=== PATIENT | male | born 1975 | race Caucasian/White ===

== ENCOUNTER → 2017-09-18 08:40 | Outpatient (CLI) | payer BC, SELFPAY ==
--- NOTE | 2017-09-18 08:47 | US_ITS ---
HISTORY: ITS.REASON: RUQ ABD PAIN, ELEVATED BILIRUBIN ORDERING PHYSICIAN: Celina Hurd PATIENT AGE: 42 years COMPARISON: None FINDINGS: PANCREAS: Unremarkable. No obvious mass or abnormal fluid collection. No ductal dilatation LIVER: No focal liver lesions demonstrated. Homogeneous echogenicity. No intrahepatic biliary ductal dilatation evident RIGHT KIDNEY: Unremarkable. Normal size and echogenicity. No hydronephrosis GALLBLADDER: No gallstones, gallbladder wall thickening, pericholecystic fluid, or biliary dilatation. There is a small amount sludge versus concentrated bile in the gallbladder. No stones. IMPRESSION: No gallstones evident. Minimal amount sludge versus concentrated bile within the gallbladder questionable clinical significance
== END ==
PROVIDERS: Family Provider Family Medicine; PCP Family Medicine; Visit Provider Nurse Practitioner Family
DX: R17 Unspecified jaundice (principal); R10.11 Right upper quadrant pain
CPT/HCPCS: 76705

== ENCOUNTER → 2018-04-03 10:11 | Outpatient (CLI) | payer BC, SELFPAY ==
--- NOTE | 2018-04-03 10:14 | MR_ITS ---
MR head/brain wo con HISTORY: Subtle onset severe left-sided headache ITS.REASON: SUDDEN ONSET OF HEADACHE, FAMILY HX OF CEREBRAL ANEURYSM, BL ORDERING PHYSICIAN: Celina Hurd PATIENT AGE: 42 years Comparison: None TECHNIQUE: Standard multiplanar multiecho sequences are performed without contrast. FINDINGS: No midline shift, mass effect, intracranial hemorrhage or hydrocephalus. No evidence of acute infarction. The cerebellopontine angles, cerebellum, brainstem, pituitary, and optic chiasm have an unremarkable appearance. No cerebellar ectopia. There is normal angel-white matter differentiation. There are a few periventricular T2 white matter hyperintensities nonspecific and may be due to small gliotic foci. No large aneurysms are evident. Small aneurysms may not be seen with this technique and may be better evaluated for with MRA if clinically warranted. There is mild mucosal thickening of the ethmoid sinuses on the left. No mastoid effusion. There is a small Thornwaldt cyst in the nasopharynx measuring 10 by 8 mm. A right frontal subcutaneous cyst is present 17 mm. IMPRESSION: 1. No acute intracranial findings. 2. There are only a few T2 white matter hyperintensities which are nonspecific and could be due to small ischemic gliotic foci from microvascular changes or sequela from migraine headache 3. Left nasopharyngeal Thornwaldt cyst and right frontal subcutaneous cyst 4. Mild left ethmoid sinus disease IMPRESSION:
== END ==
PROVIDERS: Family Provider Family Medicine; PCP Family Medicine; Visit Provider Nurse Practitioner Family
DX: R51 Headache (principal); Z82.49 Family history of ischemic heart disease and other diseases of the circulatory system; H53.8 Other visual disturbances
CPT/HCPCS: 70551

== ENCOUNTER → 2018-04-13 10:04 | Outpatient (CLI) | payer BC, SELFPAY ==
--- NOTE | 2018-04-13 10:11 | NM_ITS ---
Hepatobiliary HEPATOBILIARY SCAN WITH FATTY MEAL/ENSURE ORDERING PHYSICIAN : Celina Hurd PATIENT AGE: 42 years GENDER: Male HISTORY: Right upper quadrant pain and nausea Following 8.02 millicuries Tc Choletec, images of the RUQ were obtained. There is prompt uptake of radionuclide by the liver which is grossly unremarkable. Small bowel is visualized. This initial portion of the study is normal. The gallbladder was allowed to fill out to 60 minutes. Fatty meal/1 can of ensure over administered with imaging performed over 60 minutes minutes. Thereafter. The obtain data was analyzed and reveals a 71 % gallbladder ejection fraction (normal greater than 50%; borderline 35-50%). This is normal value. No pain with fatty meal . Visual inspection which supports that there is adequate contraction of the gallbladder as well as, over 50-% IMPRESSION: Normal functioning gallbladder. 71% % gallbladder ejection fraction by computer analysis. No pain with fatty meal.
== END ==
PROVIDERS: Family Provider Family Medicine; PCP Family Medicine; Visit Provider Nurse Practitioner Family
DX: R10.11 Right upper quadrant pain (principal); R17 Unspecified jaundice
CPT/HCPCS: 78226; A9537

== ENCOUNTER → 2018-05-12 09:18 | Outpatient (POV) | payer BC, SELFPAY | PROVIDERS: Visit Provider Otolaryngology | DX: Z00.00 Encounter for general adult medical examination without abnormal findings (principal) ==

== ENCOUNTER → 2018-08-26 13:23 | Outpatient (CLI) | payer BC, SELFPAY ==
[2018-08-26 14:39] LABS: Basophils # 0.1 K/mm3 (0-0.2); Basophils % 0.7 % (0.1-2.0); Eosinophils # 0.3 K/mm3 (0.0-0.4); Hematocrit 49.3 % (42.0-52.0); Hemoglobin 16.4 g/dL (14.1-18.0); Lymphocytes % 27.3 % (10-50); Mean Corpuscular HGB Conc 33.3 g/dL (31.8-35.4); Mean Corpuscular Hemoglobin 30.8 pg (27.0-31.2); Mean Corpuscular Volume 92.6 fl (80-94); Mean Platelet Volume 7.6 fl (7.4-10.4); Monocytes # 0.5 K/mm3 (0.1-1.0); Monocytes % 6.3 % (1.7-9.3); Neutrophils # 4.4 K/mm3 (1.8-7.8); Neutrophils % 61.7 % (37.0-80.0); Platelet Count 242 K/mm3 (142-424); Red Blood Count 5.32 M/mm3 (4.60-6.20); White Blood Count 7.2 K/mm3 (4.8-10.8)
[2018-08-26 16:16] LABS: Anion Gap 11.2 mEq/L (5-15); Blood Urea Nitrogen 11 mg/dL (7-18); Calcium 9.1 mg/dL (8.5-10.1); Carbon Dioxide 31 mmol/L (21.0-32.0); Chloride 102 mmol/L (98-107); Creatinine,Serum 1.18 mg/dL (0.70-1.30); Estimated Glomerular Filt Rate 67 ml/min (>60); GFR (African American) 81 ML/MIN (>60); Glucose 78 mg/dL (74-106); Potassium 4.2 mmoL/L (3.5-5.1); Sodium 140 mmol/L (136-145)
== END ==
PROVIDERS: Visit Provider Surgery
DX: R10.13 Epigastric pain (principal)
CPT/HCPCS: 36415; 80048; 85025

== ENCOUNTER → 2019-06-08 11:37 | Outpatient (CLI) | payer BC, SELFPAY ==
--- NOTE | 2019-06-08 11:43 | XR_ITS ---
PROCEDURE: XR CHEST 2V CLINICAL HISTORY: CHEST PAIN Chest pain COMPARISON: CXR2V XR chest 2V from 06/30/2018 FINDINGS: The cardiomediastinal silhouette and pulmonary vascularity are within normal limits. The lungs are clear without infiltrates, suspicious nodules, or pleural effusions. No acute bony abnormalities. IMPRESSION: No acute findings. Dictated by: Ayaz Del Castillo MD 06/08/2019 12:04 Electronically signed by Ayaz Del Castillo MD in [facility] 06/08/2019 12:04
--- NOTE | 2019-06-08 12:07 | ECG_ITS ---
APPROVED REPORT Exam: Resting ECG HR:56 bpm ECG Measurements Heart Rate 56 AXES NC 134 P 37 QRSd 84 QRS 42 QT 396 T 44 QTc 382 <Conclusion> Sinus bradycardia ST elevation, probably due to early repolarization Borderline ECG Electronically signed by : Kenji Fabian, 06/08/2019 16:27:19
== END ==
PROVIDERS: PCP Nurse Practitioner; Visit Provider Nurse Practitioner
DX: R07.9 Chest pain, unspecified (principal)
CPT/HCPCS: 71046; 93005

== ENCOUNTER → 2019-06-21 07:08 | Outpatient (CLI) | payer BC, SELFPAY ==
--- NOTE | 2019-06-21 | CA_ITS ---
APPROVED REPORT Exam: Exercise Treadmill Technologist: eduardo ramires, Ht: 5 ft 9 in Wt: 210 lbs BSA: 2.11 m2 HR: 72 bpm BP: 155/91 mmHg Indications: CP Medical History Allergies: Hydrocodone, Naproxen, PCN Cardiac Risk Factors: FHX of CAD, Chews Stress Test Details Test: [place], Exercise stress testing was performed using a [place] protocol. HR Resting HR: 66 bpm Max Heart Rate (APMHR): 175 bpm Max HR Achieved: 158 bpm Target HR (85% APMHR): 148 bpm % of APMHR: 90 Recovery HR: 84 bpm BP Resting BP: 153/86 mmHg Max BP: 174/87 mmHg Recovery BP: 172.0/80.0 mmHg ECG Resting ECG: Sinus Rhythm Clinical Exercise duration: 11:30 min Highest Stage Achieved: Exercise capacity: 12.8 METs Stress ECG Conclusion Symptoms: NO CP, SOB. Leg gatigue at peak exercise. Arrhythmias/Ectopy: Occ PVC. ST-T Changes: Less than 1.5mm ST Depression. [place] Protocol completed. Exercised for 11min and 30sec . Images to follow. Test Summary Stage 3 01:00 14.0 3.4 130 . . . . REST . . . . . . . Sitting REST 04:07 0.0 0.0 66 . 153/ 86 . . Stage 1 01:00 10.0 1.7 80 . . . . Stage 1 02:00 10.0 1.7 78 . . . . Stage 1 03:00 10.0 1.7 82 . 160/ 82 . . Stage 2 01:00 12.0 2.5 92 . . . . Stage 2 02:00 12.0 2.5 97 . 156/ 88 . . Stage 2 03:00 12.0 2.5 94 . 156/ 88 . . Stage 3 01:00 14.0 3.4 130 . . . . Stage 3 02:00 14.0 3.4 117 . . . . Stage 3 03:00 14.0 3.4 118 . 168/ 84 . . Stage 4 01:00 16.0 4.2 139 . . . . Stage 4 . . . . . . . Cardiolite injected Stage 4 02:00 16.0 4.2 152 . . . . Stage 4 02:30 16.0 4.2 157 . . . Stop exercise at 11:30 RECOVERY 01:00 0.0 0.0 122 . 172/ 80 . . RECOVERY 02:00 0.0 0.0 76 . 172/ 80 . . RECOVERY 03:00 0.0 0.0 86 . 170/ 89 . . RECOVERY 04:00 0.0 0.0 87 . 174/ 87 . . RECOVERY 04:03 0.0 0.0 90 . 174/ 87 . . Electronically signed by : Kieran Tyler, 06/22/2019 08:33:02
--- NOTE | 2019-06-21 07:13 | NM_ITS ---
APPROVED REPORT Exam: Nuclear Stress Test Indication: Chest pain, Syncope, Tobacco use, Family history Patient Location: Outpatient Stress Tech: Jackelyn Hinton MS Tech:Nida Muñiz, ARRT, RT (R)(N) Ht: 5 ft 9 in Wt: 210 lbs HR: 73 bpm BP: 153/86 mmHg BSA: 2.11 m2 BMI: 31.0 History: Chest pain, Syncope, Tobacco use, Family history Procedure: Patient exercised on [place] protocol 11:30 minutes and sec, resting heart rate 73 bpm, resting blood pressure 153/86 mmHg, with exercise maximum heart rate achived was 158 bpm which is % of the maximum predicted heart rate and blood pressure was 160/80 mmHg. Test was stopped due to leg fatigue. Patient denied any complaint of chest pain. Cardiac Stress and Resting SPECT Images: Cardiac Stress and Resting SPECT images were obtained using technetium 99m Myoview 30.2 mCi stress and 9.88 mCi at rest. Ejection fraction is low at 46% with global hypokinesia Stress images show decreased activity in the inferior wall with a defect toward the base of the inferior wall. This becomes normal on the rest images. The findings are consistent with ischemic changes of the inferior wall Conclusion: Ejection fraction is low at 46% with global hypokinesia Stress images show decreased activity in the inferior wall with a defect toward the base of the inferior wall. This becomes normal on the rest images. The findings are consistent with ischemia of the inferior wall Electronically signed by : Ayaz Del Castillo MD 06/23/2019 15:49:13
--- NOTE | 2019-06-21 09:06 | HMH.ITSHM ---
Current Home Medications as stated by this patient Marck Villegas or hospital sales representative. []ANTIBIOTIC ACID REFLUX MED NASAL SPRAY
== END ==
PROVIDERS: PCP Nurse Practitioner; Visit Provider Family Medicine
DX: R07.9 Chest pain, unspecified (principal)
CPT/HCPCS: 78452; 93017; A9502

== ENCOUNTER 2020-02-18 12:16 | Emergency (ER) | payer BC, SELFPAY ==
[2020-02-18 12:18] VITALS: BP 137/79; PULSE 61; RESP 18; TEMP 36.7; O2SAT 99; BMI 28.0
--- NOTE | 2020-02-18 12:37 | CT_ITS ---
PROCEDURE: CT ABDOMEN PELVIS W CON CLINICAL INDICATION: bloody stool, abd pain COMPARISON: ABDPELW/O CT ABD PELVIS W/O CONTRAST from 10/19/2012 TECHNIQUE: IV Contrast: 75ML OPTIRAY 350 Oral Contrast None Axial images obtained with sagittal and coronal reformats. All CT scans at the facility use one or more dose reduction, viz: automated exposure control, ma/kV adjustment per patient size (including targeted exams where dose is matched to indication, i.e. head), or iterative reconstruction technique. FINDINGS: Lung bases are remarkable for a 6 millimeter calcified granuloma within the left lung base. There is a small hiatal hernia. The enhanced liver, adrenal glands, pancreas, and the spleen is unremarkable. The patient is status post cholecystectomy. Right kidney is unremarkable. There is a punctate nonobstructive calculus in the lower pole of the left kidney. Aorta, small and large bowel, appendix, soft tissues, and bony structures are unremarkable. CT scan of the pelvis with contrast: Prostate, seminal vesicles, bladder, soft tissues, and bony structures are unremarkable for mass lesions. IMPRESSION: Status post cholecystectomy, nonobstructive small left renal calculus Dictated by: Gabe Jay 02/18/2020 13:42 Electronically signed by Gabe Jay in [facility] 02/18/2020 13:42
--- NOTE | 2020-02-18 12:45 | PC.NURSE ---
Notified rad of CT
[2020-02-18 12:47] LABS: Basophils % 0.5 % (0.1-2.0); Eosinophils # 0.4 K/mm3 (0.0-0.4); Eosinophils % 4.7 % (0.1-12.0); Hematocrit 49.8 % (42.0-52.0); Hemoglobin 17.8 g/dL (14.1-18.0); Lymphocytes # 1.9 K/mm3 (0.7-4.5); Lymphocytes % 23.3 % (10-50); Mean Corpuscular HGB Conc 35.7 g/dL (31.8-35.4); Mean Corpuscular Hemoglobin 34.1 pg (27.0-31.2); Mean Corpuscular Volume 95.4 fl (80-94); Mean Platelet Volume 7.5 fl (7.4-10.4); Monocytes # 0.4 K/mm3 (0.1-1.0); Neutrophils # 5.6 K/mm3 (1.8-7.8); Neutrophils % 66.6 % (37.0-80.0); Platelet Count 208 K/mm3 (142-424); Red Blood Count 5.22 M/mm3 (4.60-6.20); Red Cell Distribution Width 13.5 % (11.5-17.5); White Blood Count 8.4 K/mm3 (4.8-10.8)
[2020-02-18 12:50] LABS: Occult Blood,Stool Positive (Negative)
[2020-02-18 12:55] LABS: Chloride 102 mmol/L (98-107); Potassium 3.9 mmoL/L (3.5-5.1); Sodium 136 mmol/L (136-145)
[2020-02-18 12:57] LABS: Amylase 63 U/L (30-110)
[2020-02-18 12:58] LABS: Alanine Aminotransferase 63 U/L (12-78); Albumin Level 4.3 g/dl (3.5-5.0); Albumin/Globulin Ratio 1.6 (1.1-1.8); Alkaline Phosphatase 76 U/L (38-126); Anion Gap 8.9 mEq/L (5-15); Aspartate Amino Transferase 49 U/L (17-59); Blood Urea Nitrogen 11 mg/dl (9-20); Calcium 8.9 mg/dl (8.4-10.2); Carbon Dioxide 29 mmol/L (22.0-30.0); Creatinine Clearance Estimated 114 mL/min (50-200); Estimated Glomerular Filt Rate 81 ml/min (>60); GFR (African American) 98 ML/MIN (>60); Globulin 2.7 g/dL (1.3-3.2); Glucose 137 mg/dl (74-100); Lipase 79 U/L (23-300)
[2020-02-18 13:00] VITALS: BP 129/75; PULSE 61; RESP 17; O2SAT 100
--- NOTE | 2020-02-18 13:10 | PC.NURSE ---
Notified rad again about CT
--- NOTE | 2020-02-18 13:14 | PC.NURSE ---
pt to ct
[2020-02-18 13:30] VITALS: BP 143/73; PULSE 55; RESP 17; O2SAT 100
[2020-02-18 13:36] LABS: Microscopic, Urine URINE MICROSCOPIC (MICROSCOPIC)
[2020-02-18 13:39] LABS: Appearance,Urine CLEAR (Clear); Bilirubin,Urine Negative (Negative); Blood, Urine Negative (Negative); Color,Urine YELLOW (Yellow); Glucose,Urine (UA) Negative (Negative); Ketones,Urine Negative (Negative); Leukocyte Esterase,Urine Negative (Negative); Nitrate,Urine Negative (Negative); Protein,Urine Negative (Negative); Specific Gravity, Urine <= 1.005 (1.005-1.030); Urobilinogen,Urine 0.2 EU/dl (0.2)
[2020-02-18 13:54] LABS: Squamous Epithelial Cell,Urine Occasional #/hpf (0-5); WBC,Urine Occasional #/hpf (0-3)
--- NOTE | 2020-02-18 14:10 | HMH.EDGIBL ---
ED Disposition Clinical Impression: Rectal bleeding Disposition: Home, Self-Care Condition on Discharge: Good Instructions: DI for Gastrointestinal Bleeding Additional Instructions: If your condition worsens or you develop acute abdominal pain or start to have any additional symptoms please return back to the emergency department immediately. Otherwise please follow-up with Dr. Peres on Friday at 2:30 PM Referrals: Christi Viramontes APRN [Primary Care Provider] - - Critical Care Critical Care Time: No Attestation: On 02/18/20, the high probability of a clinically significant, sudden or life threatening deterioration of the following system(s) required my full and direct attention, intervention and personal management. The time I documented below is in addition to time spent performing reported procedures but includes the following listed in this critical care notation. Medical Decision Making - Medical Records Medical records reviewed: Yes: I reviewed the patient's medical records. - Rajiv Inquiry Pt receiving controlled substance: No Vital Signs: 02/18/20 12:18 02/18/20 13:00 02/18/20 13:30 Temperature 98.1 F Temperature Source Oral Pulse Rate [Right] 61 61 55 L Respiratory Rate 18 17 17 Blood Pressure [Right Arm] 137/79 129/75 143/73 H Blood Pressure Mean [Right Arm] 98 93 96 02 Sat by Pulse Oximetry 99 100 100 - Lab Data Lab results reviewed: Yes: I reviewed the patient's lab results. Lab Results 02/18/20 12:27: Stool Occult Blood Positive A 02/18/20 12:30: WBC 8.4, RBC 5.22, Hgb 17.8, Hct 49.8, MCV 95.4 H, MCH 34.1 H, MCHC 35.7 H, RDW 13.5, Plt Count 208, MPV 7.5, Neut % (Auto) 66.6, Lymph % (Auto) 23.3, [place] % (Auto) 5.0, Eos % (Auto) 4.7, Baso % (Auto) 0.5, Neut # (Auto) 5.6, Lymph # (Auto) 1.9, [place] # (Auto) 0.4, Eos # (Auto) 0.4, Baso # (Auto) 0.0 02/18/20 12:30: Sodium 136, Potassium 3.9, Chloride 102, Carbon Dioxide 29, Anion Gap 8.9, BUN 11, Creatinine 1.00, Estimated Creat Clear 114, Estimated GFR 81, Est GFR ( Amer) 98, Glucose 137 H, Calcium 8.9, Total Bilirubin 1.0, AST 49, ALT 63, Alkaline Phosphatase 76, Total Protein 7.0, Albumin 4.3, Globulin 2.7, Albumin/Globulin Ratio 1.6, Amylase 63 02/18/20 12:30: Lipase 79 02/18/20 13:31: Urine Color Yellow, Urine Appearance Clear, Urine pH 6.0, Ur Specific [place] <= 1.005, Urine Protein Negative, Urine Glucose (UA) Negative, Urine Ketones Negative, Urine Blood Negative, Urine Nitrate Negative, Urine Bilirubin Negative, Urine Urobilinogen 0.2, Ur Leukocyte Esterase Negative, Urine WBC Occasional, Ur Squamous Epith Cells Occasional Result diagrams: 02/18/20 12:30 02/18/20 12:30 Orders (Tests/Meds): ED MEDICATIONS Discontinued Medications Generic Name Dose Route Start Last Admin Trade Name Freq PRN Reason Stop Dose Admin Sodium Chloride 1,000 mls @ 999 mls/hr 02/18/20 12:45 02/18/20 12:41 Sod Chlor 0.9% 1000ml Bag IV 02/18/20 13:45 999 mls/hr .Q1H1M FIONA Administration Ioversol 75 ml 02/18/20 13:25 02/18/20 13:26 Rad-Optiray 350 100ml Vial IV 02/18/20 13:26 75 ml ONCE ONE Administration Protocol Sodium Chloride 10 ml 02/18/20 13:25 02/18/20 13:26 Rad-Saline Flush 10ml Syringe IV 02/18/20 13:26 10 ml ONCE ONE Administration - CT Data CT Scan: Abdomen Time Received: 13:[address] Reviewed: Yes: I have viewed the radiologist's interpretation Preliminary Findings: Abnormal (Patient has a couple nonacute abdominal findings that include status post cholecystectomy, and also he has nephrolithiasis with no obstruction in the kidney.) Medical Decision Narrative: We spoke to Dr. Borden's office and he agreed to see the patient sooner and his appointment is Friday at 2:30 PM Eastern standard time. GI Bleed HPI - General Chief complaint: GI Bleed Stated complaint: blood in stool Time Seen by Provider: 02/18/20 14:11 Mode of Arrival: Ambulatory Source of Information: Patient Limitations: No Li
[2020-02-18 14:26] VITALS: BP 132/87; PULSE 56; RESP 20; O2SAT 97
[2020-02-18 14:52] VITALS: BP 140/81; PULSE 53; RESP 18; TEMP 36.7; O2SAT 100
== END 2020-02-18 14:53 | disposition home or self-care (01) ==
PROVIDERS: Emergency Provider Family Medicine; PCP Nurse Practitioner
DX: K62.5 Hemorrhage of anus and rectum (principal); I10 Essential (primary) hypertension; F17.210 Nicotine dependence, cigarettes, uncomplicated; Z88.0 Allergy status to penicillin; Z88.5 Allergy status to narcotic agent; Z87.442 Personal history of urinary calculi
CPT/HCPCS: 74177; 80053; 81001; 82150; 82272; 83690; 85025; 96365; 99283; 99284; G0328; Q9967

== ENCOUNTER → 2020-03-08 14:03 | Outpatient (CLI) | payer BC, SELFPAY ==
[2020-03-08 17:23] LABS: Coronavirus 19 IgG Antibody Negative (Negative); Coronavirus 19 IgM Antibody Negative (Negative)
== END ==
PROVIDERS: Visit Provider Surgery
DX: Z03.818 Encounter for observation for suspected exposure to other biological agents ruled out (principal)
CPT/HCPCS: 36415; 86328

== ENCOUNTER 2020-03-09 06:03 | Day surgery (SDC) | payer BC, SELFPAY ==
[2020-03-07 13:22] VITALS: BMI 29.5
[2020-03-09 06:17] VITALS: BP 125/73; PULSE 55; RESP 20; TEMP 36.3; O2SAT 99
--- NOTE | 2020-03-09 07:07 | P.PN_ITS ---
[facility] Anesthesia Checklist - Patient Identification Patient Identification: Arm Band, Verbal (Name & ) - Structural Data Admitted From: Home Planned Operative Procedure/s: colon Consent for Planned Operative Procedure(s) Verified: Yes Verified Documents: History and Physical - NPO Status Verified Time NPO: 00:00 - Chart Verification Results Verified: CBC, BMP - Additional verifications Patient : No Anesthesia Reactions: No Hx Blood Transfusions: No Blood Transfusion Reaction: No Cephalosporin Allergy: No Previous Colonoscopy: Yes - Cardiovascular Assessment Heart Sounds: S1 & S2 Pulse Strength: Baseline Pulse Rhythm: Regular Peripheral Edema: No - Airway Assessment C-Spine Mobility Assessed: Yes TMJ Mobility Assessed: Yes Dentition: Good Dentition - Neurological Assessment Level of Consciousness: Awake, Alert, Appropriate Hx Seizures: No Numbness or tingling in extremities: No - Anesthesia Plan Anesthesia Risk discussed: Yes Anesthesia Plan: Verified ASA Class: II Anesthesia Type: MAC [facility] History I have reviewed the patient's past medical history: Yes Medical History: Reports:: Lung Disease, Kidney Stones Denies:: Cancer, Diabetes Mellitus Type 1, Diabetes Mellitus Type 2, Internal Pacemaker, MRSA, Seizures *Have you ever received a pneumonia vaccine?: No *Have you received a flu vaccine this season?: No Other Medical History: Reports: Other. Denies: Blood Transfusion Reaction Anesthesia experience/problems:: none Laterality Cases: Bilateral: Myringotomy (Ear Tubes) Other Surgeries: Yes: Appendectomy, Cardiac Catheterization, Cholecystectomy, Colonoscopy, Other (cystoscopy). No: Pacemaker Amputation: No Fractures: No - *Social History Last grade of school completed: 11th or 12th Smoking Status: Current every day smoker Tobacco Type: cigarettes # Packs/Day (cigarettes): 1 Alcohol Intake: never Alcohol Intake Frequency:: 0-2 drinks per day Substance Use Type: denies use *Occupational Status:: employed Housing: house Household Members: spouse *Travel in the last 8 weeks: None Family Hx:: Heart Attack
[2020-03-09 07:26] VITALS: O2SAT 99
[2020-03-09 07:59] VITALS: BP 104/67; PULSE 51; RESP 18; TEMP 36.2; O2SAT 95
--- NOTE | 2020-03-09 08:00 | HMH.SCOPE ---
- Procedure: Date: 03/09/20 Procedure Performed:: Colonoscopy with polypectomy Indications:: Blood in stool Performing Provider:: Dejuan Borden MD Referring Provider:: . Sedation:: Monitored anesthesia care Procedure:: After informed consent was obtained the patient was taken to the endoscopy suite. Sedation ensued after the patient was transferred to the left lateral decubitus position. Pulse, blood pressure, and oxygen saturation were monitored throughout the procedure. Digital rectal exam revealed no significant abnormality. The colonoscope was placed in position. The entire colon was evaluated. The colonoscope was carefully removed and the patient was transferred to recovery in stable condition. Please see findings and specimens below for detail. Findings:: Bowel preparation fair to moderate Moderate spasticity Minimal hemorrhoidal cushions No sign of active or recent hemorrhage No definitive evidence of fissure Sessile polyp at 65 cm Specimens:: Sessile polyp at 65 cm (snare) Recommendations:: Timing of repeat colonoscopy is pending pathology but will likely be around 3 years secondary to size/nature of polyp at 65 cm and slightly-limiting bowel preparation. Ongoing evaluation for source of blood in stool if symptoms persist. Complications:: No immediate Estimated blood obtained (mL): 1
[2020-03-09 08:09] VITALS: BP 108/72; PULSE 58; RESP 18; O2SAT 97
[2020-03-09 08:19] VITALS: BP 125/81; PULSE 46; RESP 18; O2SAT 100
[2020-03-09 08:30] VITALS: BP 125/71; PULSE 45; RESP 18; O2SAT 96
== END 2020-03-09 08:30 | disposition home or self-care (01) ==
LOC: OUTP 06:04
PROVIDERS: PCP Nurse Practitioner; Visit Provider Surgery
PROC: 0DJD8ZZ Inspection of Lower Intestinal Tract, Via Natural or Artificial Opening Endoscopic (ICD-10-PCS; CPT 45385; principal; 2020-03-09 07:30)
DX: K64.9 Unspecified hemorrhoids (principal); K63.5 Polyp of colon; K58.0 Irritable bowel syndrome with diarrhea; Z88.6 Allergy status to analgesic agent; Z88.0 Allergy status to penicillin; Z87.442 Personal history of urinary calculi; Z96.22 Myringotomy tube(s) status; Z82.3 Family history of stroke
CPT/HCPCS: 45385; J2704

== ENCOUNTER → 2020-11-22 15:29 | Outpatient (CLI) | payer BC, SELFPAY | PROVIDERS: PCP Nurse Practitioner; Visit Provider Nurse Practitioner | DX: G47.30 Sleep apnea, unspecified (principal); I10 Essential (primary) hypertension; R40.0 Somnolence; R06.83 Snoring | CPT/HCPCS: G0399 ==

== ENCOUNTER → 2020-11-27 16:10 | Outpatient (CLI) | payer BC, SELFPAY ==
--- NOTE | 2020-11-27 16:15 | XR_ITS ---
PROCEDURE: XR CHEST 2V CLINICAL HISTORY: SOA Shortness of air, former smoker COMPARISON: CR CXR2V XR chest 2V from 06/30/2018 CR XR CHEST 2V from 06/08/[address] ABDOMEN PELVIS W CON from 02/18/2020 FINDINGS: Normal heart size. Increased density is present in the azygos region suspicious for adenopathy. There is also prominence of the right hilum also suspicious for adenopathy. Suggest chest CT with contrast for further evaluation. The lungs are clear without infiltrates, suspicious nodules, or pleural effusions. No acute bony abnormalities. IMPRESSION: Mediastinal and right hilar adenopathy. Recommend chest CT with contrast for confirmation Dictated by: Ayaz Del Castillo MD 11/27/2020 16:43 Ayaz Del Castillo MD in [facility] 11/27/2020 16:43
[2020-11-27 18:43] LABS: Basophils % 0.5 % (0.1-2.0); Eosinophils # 0.2 K/mm3 (0.0-0.4); Eosinophils % 2.3 % (0.1-12.0); Hematocrit 47.9 % (42.0-52.0); Hemoglobin 16.6 g/dL (14.1-18.0); Lymphocytes # 1.6 K/mm3 (0.7-4.5); Lymphocytes % 17.9 % (10-50); Mean Corpuscular HGB Conc 34.7 g/dL (31.8-35.4); Mean Corpuscular Hemoglobin 32.1 pg (27.0-31.2); Mean Corpuscular Volume 92.5 fl (80-94); Mean Platelet Volume 7.8 fl (7.4-10.4); Monocytes # 0.7 K/mm3 (0.1-1.0); Monocytes % 7.6 % (1.7-9.3); Neutrophils # 6.4 K/mm3 (1.8-7.8); Neutrophils % 71.6 % (37.0-80.0); Platelet Count 246 K/mm3 (142-424); Red Blood Count 5.18 M/mm3 (4.60-6.20); Red Cell Distribution Width 12.9 % (11.5-17.5); White Blood Count 8.9 K/mm3 (4.8-10.8)
[2020-11-27 18:57] LABS: Chloride 103 mmol/L (98-107); Potassium 4.5 mmoL/L (3.5-5.1); Sodium 138 mmol/L (136-145)
[2020-11-27 19:00] LABS: Alanine Aminotransferase 28 U/L (12-78); Albumin Level 4.2 g/dl (3.5-5.0); Albumin/Globulin Ratio 1.5 (1.1-1.8); Alkaline Phosphatase 91 U/L (38-126); Anion Gap 10.5 mEq/L (5-15); Aspartate Amino Transferase 27 U/L (17-59); Bilirubin,Total 0.7 mg/dl (0.2-1.3); Blood Urea Nitrogen 14 mg/dl (9-20); Carbon Dioxide 29 mmol/L (22.0-30.0); Estimated Glomerular Filt Rate 80 ml/min (>60); GFR (African American) 97 ML/MIN (>60); Globulin 2.8 g/dL (1.3-3.2)
[2020-11-27 19:01] LABS: Calcium 9.6 mg/dl (8.4-10.2); Glucose 89 mg/dl (74-100)
[2020-11-27 19:08] LABS: Coronavirus 19 IgG Antibody Negative (Negative); Coronavirus 19 IgM Antibody Negative (Negative)
[2020-11-27 19:38] LABS: NT Pro Brain Natriuretic Pep. 66.5 pg/mL (0-125)
== END ==
PROVIDERS: PCP Nurse Practitioner; Visit Provider Nurse Practitioner
DX: R06.02 Shortness of breath (principal); Z20.822 Contact with and (suspected) exposure to COVID-19
CPT/HCPCS: 36415; 71046; 80053; 83880; 85025; 86328; U0003

== ENCOUNTER → 2021-05-14 13:44 | Outpatient (CLI) | payer BC, SELFPAY ==
[2021-05-14 14:22] LABS: Basophils % 0.6 % (0.1-2.0); Eosinophils # 0.2 K/mm3 (0.0-0.4); Eosinophils % 3.3 % (0.1-12.0); Hematocrit 50.5 % (42.0-52.0); Hemoglobin 17.4 g/dL (14.1-18.0); Lymphocytes # 1.3 K/mm3 (0.7-4.5); Lymphocytes % 19.8 % (10-50); Mean Corpuscular HGB Conc 34.4 g/dL (31.8-35.4); Mean Corpuscular Hemoglobin 32.5 pg (27.0-31.2); Mean Corpuscular Volume 94.4 fl (80-94); Mean Platelet Volume 7.2 fl (7.4-10.4); Monocytes # 0.4 K/mm3 (0.1-1.0); Monocytes % 6.8 % (1.7-9.3); Neutrophils # 4.5 K/mm3 (1.8-7.8); Neutrophils % 69.6 % (37.0-80.0); Platelet Count 225 K/mm3 (142-424); Red Blood Count 5.35 M/mm3 (4.60-6.20); Red Cell Distribution Width 13.2 % (11.5-17.5); White Blood Count 6.5 K/mm3 (4.8-10.8)
[2021-05-14 15:17] LABS: Free T4 (Free Thyroxine) 0.83 ng/dl (0.78-2.19)
[2021-05-14 15:57] LABS: Alanine Aminotransferase 33 U/L (12-78); Alkaline Phosphatase 103 U/L (38-126); Aspartate Amino Transferase 32 U/L (17-59); Bilirubin,Direct 0.2 mg/dl (0.0-0.4); Bilirubin,Indirect 0.5 mg/dL (0.0-0.9); Bilirubin,Total 0.7 mg/dl (0.2-1.3); Bilirubin,Unconjugated 0.5 mg/dL (0.0-1.1)
[2021-05-14 15:58] LABS: Albumin Level 4.1 g/dl (3.5-5.0); Total Protein,Serum 6.8 g/dl (6.3-8.2)
[2021-05-14 16:28] LABS: Thyroid Stimulating Hormone 4.05 uIU/mL (0.465-4.68)
[2021-05-16 08:28] LABS: Triiodothyronine (T3) Total 129 ng/dL (71-180)
[2021-05-16 15:26] LABS: Thyroglobulin Level 4.1 IU/mL (0.0-0.9)
[2021-05-17 21:52] LABS: GAD-65 <5.0 U/mL (0.0-5.0)
== END ==
PROVIDERS: Visit Provider Internal Medicine Endocrinology, Diabetes & Metabolism
DX: C73 Malignant neoplasm of thyroid gland (principal); E05.90 Thyrotoxicosis, unspecified without thyrotoxic crisis or storm; R94.5 Abnormal results of liver function studies; I25.9 Chronic ischemic heart disease, unspecified; E11.65 Type 2 diabetes mellitus with hyperglycemia; D53.9 Nutritional anemia, unspecified
CPT/HCPCS: 36415; 80076; 83519; 84439; 84443; 84480; 85025; 86141; 86800

== ENCOUNTER 2021-09-06 01:45 | Observation (INO) | payer BC, SELFPAY ==
[2021-09-06] VITALS (13 sets, daily range): BP systolic 105–137; BP diastolic 59–86; PULSE 54–65; RESP 15–17; TEMP 36.4–36.9; O2SAT 95–99; BMI 30.2; BMI 30.7
--- NOTE | 2021-09-06 01:54 | ECG_ITS ---
APPROVED REPORT Exam: Resting ECG HR:54 bpm ECG Measurements Heart Rate 54 AXES VT 158 P 63 QRSd 84 QRS 50 QT 410 T 52 QTc 388 Conclusion Sinus bradycardia Otherwise normal ECG Electronically signed by : Dean Evans MD 09/07/2021 17:34:54
--- NOTE | 2021-09-06 02:09 | CT_ITS ---
PROCEDURE INFORMATION: Exam: CT Head Without Contrast Exam date and time: 09/06/2021 2:09 AM Age: 46 years old Clinical indication: Injury or trauma; Fall; Blunt trauma (contusions or hematomas); With loss of consciousness; Loss of consciousness for 30 minutes or less; Injury details: Syncopal episode, possibly hit head on sink. ; Additional info: Syncope TECHNIQUE: Imaging protocol: Computed tomography of the head without contrast. Total images: 276 Radiation optimization: All CT scans at this facility use at least one of these dose optimization techniques: automated exposure control; mA and/or kV adjustment per patient size (includes targeted exams where dose is matched to clinical indication); or iterative reconstruction. COMPARISON: BRAINWO MR head/brain wo con 04/03/2018 10:42 AM FINDINGS: Brain: Normal. No hemorrhage. Unremarkable white matter. No mass effect. Cerebral ventricles: No ventriculomegaly. Paranasal sinuses: Visualized sinuses are unremarkable. No fluid levels. Mastoid air cells: Visualized mastoid air cells are well aerated. Bones/joints: Unremarkable. No acute fracture. Soft tissues: Unremarkable. IMPRESSION: No acute intracranial abnormality.
--- NOTE | 2021-09-06 02:09 | XR_ITS ---
PROCEDURE INFORMATION: Exam: XR Pelvis Exam date and time: 09/06/2021 2:09 AM Age: 46 years old Clinical indication: Screening exam; Fall, syncopal episode. Denies any hip or pelvic pain TECHNIQUE: Imaging protocol: XR pelvis. Views: 1 or 2 view. Total images: 1 COMPARISON: CT ABDOMEN PELVIS W CON 02/18/2020 1:17 PM FINDINGS: Bones/joints: Unremarkable. No acute fracture. Soft tissues: Unremarkable. IMPRESSION: No acute findings.
--- NOTE | 2021-09-06 02:09 | XR_ITS ---
PROCEDURE INFORMATION: Exam: XR Chest Exam date and time: 09/06/2021 2:09 AM Age: 46 years old Clinical indication: Screening exam; Other screening; Patient HX: Syncopal episode, denies any chest pain; Additional info: Fall TECHNIQUE: Imaging protocol: XR of the chest. Views: 2 views. Total images: 2 COMPARISON: CR XR CHEST 2V 11/27/2020 4:22 PM FINDINGS: Lungs: Unremarkable. No consolidation. Pleural spaces: Unremarkable. No pleural effusion. No pneumothorax. Heart/Mediastinum: Unremarkable. No cardiomegaly. Bones/joints: Unremarkable. IMPRESSION: No acute findings.
--- NOTE | 2021-09-06 02:09 | CT_ITS ---
PROCEDURE INFORMATION: Exam: CT Cervical Spine Without Contrast Exam date and time: 09/06/2021 2:09 AM Age: 46 years old Clinical indication: Injury or trauma; Fall; Blunt trauma; Additional info: Syncope TECHNIQUE: Imaging protocol: Computed tomography images of the cervical spine without contrast. Total images: 270 Radiation optimization: All CT scans at this facility use at least one of these dose optimization techniques: automated exposure control; mA and/or kV adjustment per patient size (includes targeted exams where dose is matched to clinical indication); or iterative reconstruction. COMPARISON: BRAINWO MR head/brain wo con 04/03/2018 10:42 AM FINDINGS: Bones/joints: Left sided C4 pars suspected benign bone island. There is reversal of the normal cervical lordosis. Discs/Spinal canal/Neural foramina: Mild disc bulge at C6/C7. Lungs: Lung apices are normal. Soft tissues: Unremarkable. IMPRESSION: 1. Reversal of the normal cervical lordosis, often seen with muscle strain or spasm. 2. No acute fracture identified.
[2021-09-06 02:27] LABS: Basophils # 0.2 K/mm3 (0-0.2); Basophils % 2.8 % (0.1-2.0); Eosinophils # 0.4 K/mm3 (0.0-0.4); Eosinophils % 5.1 % (0.1-12.0); Hematocrit 53.2 % (42.0-52.0); Lymphocytes # 2.1 K/mm3 (0.7-4.5); Lymphocytes % 29.8 % (10-50); Mean Corpuscular HGB Conc 33.8 g/dL (31.8-35.4); Mean Corpuscular Hemoglobin 33.2 pg (27.0-31.2); Mean Corpuscular Volume 98.2 fl (80-94); Mean Platelet Volume 7.7 fl (7.4-10.4); Monocytes # 0.4 K/mm3 (0.1-1.0); Monocytes % 5.4 % (1.7-9.3); Neutrophils # 3.9 K/mm3 (1.8-7.8); Neutrophils % 56.8 % (37.0-80.0); Platelet Count 251 K/mm3 (142-424); Red Blood Count 5.42 M/mm3 (4.60-6.20); Red Cell Distribution Width 13.6 % (11.5-17.5); White Blood Count 6.9 K/mm3 (4.8-10.8)
[2021-09-06 02:31] LABS: Alanine Aminotransferase 33 U/L (12-78); Albumin Level 4.5 g/dl (3.5-5.0); Albumin/Globulin Ratio 1.8 (1.1-1.8); Alkaline Phosphatase 67 U/L (38-126); Anion Gap 9.5 mEq/L (5-15); Aspartate Amino Transferase 35 U/L (17-59); Bilirubin,Total 0.7 mg/dl (0.2-1.3); Blood Urea Nitrogen 10 mg/dl (9-20); Calcium 9.3 mg/dl (8.4-10.2); Carbon Dioxide 30 mmol/L (22.0-30.0); Chloride 101 mmol/L (98-107); Creatinine Clearance Estimated 109 mL/min (50-200); Estimated Glomerular Filt Rate 72 ml/min (>60); Ethyl Alcohol 59 mg/dl (0-10); GFR (African American) 87 ML/MIN (>60); Globulin 2.5 g/dL (1.3-3.2); Glucose 106 mg/dl (74-100); Magnesium 1.9 mg/dl (1.6-2.3); Potassium 3.5 mmoL/L (3.5-5.1); Sodium 137 mmol/L (136-145)
[2021-09-06 02:36] LABS: C-Reactive Protein 0.8 mg/L (0-4)
[2021-09-06 02:46] LABS: NT Pro Brain Natriuretic Pep. 35.8 pg/mL (0-125)
[2021-09-06 02:48] LABS: Troponin I < 0.01 ng/ml (0.00-0.034)
[2021-09-06 02:51] LABS: Procalcitonin 0.065 ng/mL (0.0-2.0); T4 (Thyroxine) 7.9 ug/dl (5.53-11.0)
[2021-09-06 03:01] LABS: Erythrocyte Sedimentation Rate 4 mm/hr (0-15)
[2021-09-06 03:04] LABS: Thyroid Stimulating Hormone 5.06 uIU/mL (0.465-4.68)
--- NOTE | 2021-09-06 03:18 | HMH.EDSYNC ---
ED Disposition Clinical Impression: Syncope Qualifiers: Syncope type: unspecified Qualified Code(s): R55 - Syncope and collapse Disposition: Admitted as Observation Condition on Discharge: Good - Critical Care Critical Care Time: No Attestation: On 09/06/21, the high probability of a clinically significant, sudden or life threatening deterioration of the following system(s) required my full and direct attention, intervention and personal management. The time I documented below is in addition to time spent performing reported procedures but includes the following listed in this critical care notation. Medical Decision Making - Medical Records Medical records reviewed: Yes: I reviewed the patient's medical records. - Rajiv Inquiry Pt receiving controlled substance: No Vital Signs: 09/06/21 01:47 09/06/21 02:00 09/06/21 02:30 Temperature 97.7 F Temperature Source Oral Pulse Rate 64 60 Pulse Rate [Right] 62 Respiratory Rate 17 Blood Pressure 134/83 115/73 Blood Pressure [Right Arm] 119/85 Blood Pressure Mean [Right Arm] 96 Blood Pressure Source [Right Arm] Automatic Cuff 02 Sat by Pulse Oximetry 99 95 95 Oxygen Delivery Method Room Air Room Air Room Air 09/06/21 03:00 09/06/21 03:30 09/06/21 04:00 Temperature Temperature Source Pulse Rate 57 L 57 L 65 Pulse Rate [Right] Respiratory Rate Blood Pressure 116/72 105/59 L 132/84 Blood Pressure [Right Arm] Blood Pressure Mean [Right Arm] Blood Pressure Source [Right Arm] 02 Sat by Pulse Oximetry 96 95 98 Oxygen Delivery Method Room Air Room Air Room Air 09/06/21 04:30 Temperature Temperature Source Pulse Rate 62 Pulse Rate [Right] Respiratory Rate Blood Pressure 127/85 Blood Pressure [Right Arm] Blood Pressure Mean [Right Arm] Blood Pressure Source [Right Arm] 02 Sat by Pulse Oximetry 95 Oxygen Delivery Method Room Air - Lab Data Lab results reviewed: Yes: I reviewed the patient's lab results. Lab Results 09/06/21 02:00: WBC 6.9, RBC 5.42, Hgb 18.0, Hct 53.2 H, MCV 98.2 H, MCH 33.2 H, MCHC 33.8, RDW 13.6, Plt Count 251, MPV 7.7, Neut % (Auto) 56.8, Lymph % (Auto) 29.8, Isabel[place] % (Auto) 5.4, Eos % (Auto) 5.1, Baso % (Auto) 2.8 H, Neut # (Auto) 3.9, Lymph # (Auto) 2.1, Isabel[place] # (Auto) 0.4, Eos # (Auto) 0.4, Baso # (Auto) 0.2, ESR 4 09/06/21 02:00: Sodium 137, Potassium 3.5, Chloride 101, Carbon Dioxide 30, Anion Gap 9.5, BUN 10, Creatinine 1.10, Estimated Creat Clear 109, Estimated GFR 72, Est GFR ( Amer) 87, Glucose 106 H, Calcium 9.3, Magnesium 1.9, Total Bilirubin 0.7, AST 35, ALT 33, Alkaline Phosphatase 67, Troponin I < 0.01, C-Reactive Protein 0.8, NT-Pro-B Natriuret Pep 35.8, Total Protein 7.0, Albumin 4.5, Globulin 2.5, Albumin/Globulin Ratio 1.8, Procalcitonin 0.065, TSH 5.06 H, Thyroxine (T4) 7.9 09/06/21 02:00: Plasma/Serum Alcohol 59 H Result diagrams: 09/06/21 02:00 09/06/21 02:00 Orders (Tests/Meds): ED MEDICATIONS Generic Name Dose Route Start Last Admin Trade Name Freq PRN Reason Stop Dose Admin Sodium Chloride 1,000 mls @ 999 mls/hr 09/06/21 02:45 09/06/21 03:00 Sod Chlor 0.9% 1000ml Bag IV 09/06/21 03:45 999 mls/hr .Q1H1M FIONA Administration Discontinued Medications Generic Name Dose Route Start Last Admin Trade Name Freq PRN Reason Stop Dose Admin Ketorolac Tromethamine 30 mg 09/06/21 04:30 09/06/21 04:34 Ketorolac 30mg/Ml Vial IV 09/06/21 04:31 30 mg ONCE ONE Administration ORDERS Category Date Time Status Rapid PCR Covid and Flu A/B Stat Lab 09/06/21 04:12 Received Troponin I Q3H Lab 09/06/21 04:29 Received Troponin I Q3H Lab 09/06/21 08:15 Ordered UDS [Drug Screen,Urine] Stat Lab 09/06/21 02:09 Ordered Urinalysis and Microscopic Stat Lab 09/06/21 02:09 Ordered 12-lead EKG Request [ECG Request by /Jhonny] Stat Y 09/06/21 02:12 Ordered - Radiology Data #1 Image(s): Chest, Pelvis Image Reviewed: Yes I have reviewed
[2021-09-06 04:47] LABS: Coronavirus 19, PCR Not Detected (NotDetected); Influenza A, PCR Not Detected (NotDetected); Influenza B, PCR Not Detected (NotDetected)
[2021-09-06 05:11] LABS: Troponin I < 0.01 ng/ml (0.00-0.034)
--- NOTE | 2021-09-06 05:26 | PC.NURSE ---
patient up to floor via wheelchair at this time
--- NOTE | 2021-09-06 08:00 | CA_ITS ---
APPROVED REPORT EXAM: Comprehensive 2D, Doppler, and color-flow Echocardiogram [employer] Mechanic: Cira Ballesteros CRT Ht: 5 ft 9 in Wt: 205lbs BSA: 2.09 BP: 127/85 mmHg Indications: cp, syncope, normal cath 07/05/19, mediastinal lymphadenopathy, stopped residential amoxicillian & thyroid meds last week. 2D Dimensions LVOT 2.05 cm (M/F) 1.5-2.5 LA Volume 36.40 mL LA Volume Index 17.40 mL/m2 (M/F) 16-34 M-Mode Dimensions RVDd 3.14 cm (0.9-2.6) LA Diam 3.48 cm (1.9-4.0) LVDd 4.60 cm (3.5-5.7) Ao Diam 4.07 cm (2.0-3.7) LVDs 3.14 cm (3.5-5.7) IVSd 1.57 cm (0.6-1.1) PWd 0.54 cm (0.6-1.1) EF (Teich) 59.80% FS 31.70% EDV (Teich) 97.30 mL TAPSE 2.30 (<1.7) ESV (Teich) 39.10 mL LV Diastology E Decel Time 150.00 (160-240 msec) E/A Ratio 1.42 MED E' 13.10 (< 7 cm/sec) MED A' 10.50 cm/s E'/MED E' Ratio 4.69 (>14) LAT E' 17.00 (<10 cm/sec) LAT A' 10.60 cm/s E/LAT E' Ratio 3.62 (>14) Aortic Valve AO Peak GR. 3.70 mmHg Mitral Valve MV E Max Elmo. 62.00 (40-130 cm/s) MV A Velocity 43.00 (40-130 cm/s) E/A Ratio 1.42 MV Decel. Time 150.00 (160-240 ms) MV PHT 44.00 ms Pulmonary Valve PV Peak Velocity 74.00 (50-150 cm/s) Tricuspid Valve TR P. Velocity 253.00 cm/s RAP Estimate 10.00 mmHg RVSP 35.50 mmHg Left Ventricle Left atrium is normal size, left ventricle is normal size, there is no concentric left ventricular hypertrophy, visually estimated ejection fraction 55% with no regional wall motion abnormality, diastolic parameters are within normal range. Right Ventricle Right atrium is normal size, right ventricle is mildly enlarged with normal contractility. Aortic Valve Aortic valve is minimally thickened and fibrosed, there is no aortic stenosis or aortic insufficiency. Mitral Valve Mitral valve is grossly normal, there is trace mitral regurgitation. Tricuspid Valve Tricuspid valve grossly normal, there is trace tricuspid regurgitation, calculated right ventricular systolic pressure is 29 mmHg. Pulmonic Valve Pulmonic valve is poorly visualized. Great Vessels Aortic root is normal size. Inferior vena cava is poorly visualized. Pericardium No significant pericardial effusion noted. Conclusion 1. Normal left ventricular size, present left ventricular systolic function, visually estimated ejection fraction 55% with no regional wall motion abnormality, diastolic parameters are within normal range. 2. Mildly enlarged right ventricle with normal contractility. 3. Trace mitral and tricuspid regurgitation. Calculated right ventricular systolic pressure is 29 mmHg. 4. No significant pericardial effusion or pain 5. Inferior vena cava is poorly visualized. Electronically signed by : Moiz Elam MD 09/07/2021 09:11:47
--- NOTE | 2021-09-06 08:14 | HMH.PHAINT ---
VERIFIED HOME MEDICATIONS WITH PHARMACY
--- NOTE | 2021-09-06 08:16 | HMH.PHAVTE ---
[facility] Pharmacy VTE Monitoring - Patient Demographics Admission date: 09/06/21 Report Date: 09/06/21 Time: 08:16 Allergies/Adverse Reactions: Patient Allergies hydrocodone Allergy (Verified 02/20/21 12:09) ITCHING, BLISTERS naproxen [From Aleve] Allergy (Verified 02/20/21 12:09) PCN (penicillin) Allergy (Unknown, Uncoded 03/15/20 09:25) Penicillin Allergy (Unknown, Uncoded 03/15/20 09:25) Penicillin G Allergy (Unknown, Uncoded 03/15/20 09:25) Height: 1.75 m Weight: 94.007 kg Patient Problems: Current Active Problems Syncope (Acute) - VTE Risk Labs: VTE Related Lab Results Hgb 18.0 g/dL (14.1-18.0) 09/06/21 02:00 Hct 53.2 % (42.0-52.0) H 09/06/21 02:00 Plt Count 251 K/mm3 (142-424) 09/06/21 02:00 BUN 10 mg/dl (9-20) 09/06/21 02:00 Creatinine 1.10 mg/dl (0.66-1.25) 09/06/21 02:00 Estimated Creat Clear 109 mL/min (50-200) 09/06/21 02:00 Was VTE Risk Assessment Performed: Yes VTE Score: 4 VTE Risk Level: Low Risk Clinical Trial Participant: No - Prophylaxis VTE Prophylaxis Ordered?: Yes Types of VTE Prophylaxis: TEDS Knee High Location of Applied Device: Bilateral Lower Extremeties
--- NOTE | 2021-09-06 08:26 | HMH.CNCARD ---
History of Present Illness Consult date: 09/06/21 Requesting physician: Aline Gamboa Chief complaint: Syncope Additional Medical History:: 1. Abnormal stress test, [facility], 07/02/2019, normal coronaries, normal LVEF, LVEDP of 20 mm Hg 2. History of positive Tilt Table A. Transient use of metoprolol, stopped 2020 during treatment of lung issues 3. Daily alcohol use, 6 beers daily 4. Shortness of breath A. 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 B. Ultimately repeat bronchoscopy with BAL proved no infection and antibiotics were discontinued. C. Received some stem cell therapy in [place], 2020. 5. Daily loose stools A. History of colonoscopy pertinent only for polyp removal 6. History of hypothyroidism, patient took supplement transiently 2020 7. Syncopal episode likely related to orthostasis with work-up unremarkable, 09/06/2021, including unremarkable head CT, echocardiogram revealing normal ejection fraction, normal troponins and no arrhythmias noted on telemetry History of present illness: 46-year-old white male admitted through the emergency department last evening for syncopal episode x2. Patient states he fell asleep in his chair last evening and woke up about 1:20 AM at which time he got up and turned off the lights and went to the bathroom to brush his teeth all within about a 3-minute period. At that time he began to feel lightheaded as if he might pass out. He did lean over the sink at which time his came to check on him and was noted to have his eyes open but not responding appropriately. In an attempt to sit down patient became extremely weak and was directed to the floor where he was noted to be less responsive than shaking but no loss of bowel or bladder continence. Patient's daughter was brought to the bathroom to check on the patient at which time he was noted to be up and walking around. Blood pressure and blood glucose reportedly were normal. He was brought to the ER for evaluation. Work-up in the ER included lab work, head CT and EKG all essentially unremarkable. Due to a previous abnormal stress test and concern for coronary artery disease patient was admitted for follow-up evaluation. Patient did have a cardiac catheterization after his stress test in 2018 which was revealing of normal coronary arteries and normal left ventricular ejection fraction. Patient does have about 2 episodes of loose stools daily and has for a long time. He drinks about 6 beers per day along with at least 2 Mountain Dew's and tea. He drinks very little water. He denies any recent chest pain, pressure or tightness. No vomiting or recent illness. His only medication is omeprazole for GERD. Orthostatic vital signs today include supine blood pressure of 120/80 mmHg, sitting 120/80 mmHg and then standing it increases to 130/90 mmHg. Preliminary echocardiogram shows preserved ejection fraction. Troponins overnight have been are normal. Telemetry shows no arrhythmias. [facility] History Medical History: Reports:: Hypertension, Lung Disease, Kidney Stones Denies:: Cancer, Diabetes Mellitus Type 1, Diabetes Mellitus Type 2, Internal Pacemaker, MRSA, Seizures *Have you ever received a pneumonia vaccine?: No *Have you received a flu vaccine this season?: No Other Medical History: Reports: Other. Denies: Blood Transfusion Reaction Laterality Cases: Bilateral: Myringotomy (Ear Tubes) Other Surgeries: Yes: Appendectomy, Cardiac Catheterization, Cholecystectomy, Colonoscopy, Other (cystoscopy). No: Pacemaker Amputation: No Fractures: No - *Social History Last grade of school completed: Some college Smoking Status: Current every day smoker Tobacco Type: smokeless tobacco # Packs/Day (cigarettes): 0 Alcohol Intake: current Alcohol Intake Frequency:: 3 or more drinks per day Substance Use Type: denies use *Occupational Status:: employed Housing: house Household Me
--- NOTE | 2021-09-06 09:11 | CA_ITS ---
FINAL REPORT CLINICAL HISTORY: SYNCOPE FINDINGS: The peak systolic velocity of the right common carotid artery is 89 cm/s. The peak systolic velocity of the right internal carotid artery is 95 cm/s and end diastolic velocity 39 cm/s. No significant plaque is present. The right external carotid artery is patent. The right vertebral artery is patent with antegrade flow. The peak systolic velocity of the left common carotid artery is 116 cm/s. The peak systolic velocity of the left internal carotid artery is 96 cm/s and end diastolic velocity 28 cm/s. No significant plaque is present. The left external carotid artery is patent.The left vertebral artery is patent with antegrade flow. IMPRESSION: No evidence of carotid artery stenosis. Bilateral patent vertebral arteries with antegrade flow. If indicated, CTA or MRA could further evaluate. Reviewed, Interpreted and Dictated by Mike Griffin III, MD Transcribed by Chinyere Sanches Authenticated by Mike Griffin III, MD on 09/06/2021 11:27:08 AM [facility]
--- NOTE | 2021-09-06 10:49 | CT_ITS ---
FINAL REPORT TECHNIQUE: Axial images of the chest were obtained without and with contrast by computed tomography. Sagittal coronal reformatted images were obtained and reviewed. This study was performed with techniques to keep radiation doses as low as reasonably achievable (ALARA). Individualized dose reduction techniques using automated exposure control or adjustment of mA and/or kV according to the patient's size were employed. CLINICAL HISTORY: lymphadenopathy FINDINGS: There are several small mediastinal and hilar nodes. Lower right paratracheal node measures 10 mm. Posterior right hilar node measures 13 mm. Several other borderline size nodes are identified. No axillary nodes are seen. There is a calcified granuloma in the left lung base. There is no suspicious pulmonary mass or nodule. Limited images of the upper abdomen reveal the patient is status post cholecystectomy. IMPRESSION: Borderline sized mediastinal and hilar nodes as a nonspecific finding, favor reactive. If indicated, consider follow-up CT in 6 months time. Reviewed, Interpreted and Dictated by Mike Griffin III, MD Transcribed by Luz Maria Rivas Authenticated by Mike Griffin III, MD on 09/06/2021 01:12:21 PM [facility]
--- NOTE | 2021-09-06 10:54 | HMH.ACPN2 ---
Internal Medicine - PN: Subj *Date: 09/06/21 *Time: 10:54 Interval history: Patient is interviewed. It sounds that he had an orthostatic episode of syncope. He has no prior history of this. Adenopathy. Bleeding service further evaluation though I am not sure that it applies directly to his present hospitalization. Differential. I will order fungal titers. 1 week. o: He is lungs are clear heart regular rate and rhythm without ectopics. He has no leg edema. His abdomen is soft. Exam Vital signs and Labs for Last 24 Hours: Temp Pulse Resp BP Pulse Ox 98.4 F 54 L 16 120/80 99 09/06/21 08:00 09/06/21 08:00 09/06/21 08:00 09/06/21 08:00 09/06/21 08:00 Laboratory Results - last 24 hr 09/06/21 02:00: WBC 6.9, RBC 5.42, Hgb 18.0, Hct 53.2 H, MCV 98.2 H, MCH 33.2 H, MCHC 33.8, RDW 13.6, Plt Count 251, MPV 7.7, Neut % (Auto) 56.8, Lymph % (Auto) 29.8, [place] % (Auto) 5.4, Eos % (Auto) 5.1, Baso % (Auto) 2.8 H, Neut # (Auto) 3.9, Lymph # (Auto) 2.1, [place] # (Auto) 0.4, Eos # (Auto) 0.4, Baso # (Auto) 0.2, ESR 4 09/06/21 02:00: Sodium 137, Potassium 3.5, Chloride 101, Carbon Dioxide 30, Anion Gap 9.5, BUN 10, Creatinine 1.10, Estimated Creat Clear 109, Estimated GFR 72, Est GFR ( Amer) 87, Glucose 106 H, Calcium 9.3, Magnesium 1.9, Total Bilirubin 0.7, AST 35, ALT 33, Alkaline Phosphatase 67, Troponin I < 0.01, C-Reactive Protein 0.8, NT-Pro-B Natriuret Pep 35.8, Total Protein 7.0, Albumin 4.5, Globulin 2.5, Albumin/Globulin Ratio 1.8, Procalcitonin 0.065, TSH 5.06 H, Thyroxine (T4) 7.9 09/06/21 02:00: Plasma/Serum Alcohol 59 H 09/06/21 04:12: SARS-CoV-2 (PCR) Not detected, Influenza A Untype (PCR) Not detected, Influenza Type B (PCR) Not detected 09/06/21 04:29: Troponin I < 0.01 I & O for Last 24 hours: Intake & Output 09/03/21 09/04/21 09/05/21 09/06/21 11:59 11:59 11:59 11:59 Intake Total 1000 / 1000 Balance 1000 / 1000 Weight 207 lb 4 oz - Constitutional no acute distress - *Routine HEENT Exam Head: Present: normocephalic Eye: Present: EOMI, PERRL ENT: Present: mucous membranes moist - *Routine Neck Exam Present: supple. Absent: lymphadenopathy - *Routine Respiratory Exam Present: CTA bilaterally - *Routine Cardiovascular Exam Present: RRR - *Routine Abdominal Exam Present: soft, normoactive bowel sounds. Absent: tenderness - *Routine Extremities Exam Absent: cyanosis, clubbing, edema - *Routine Skin Exam Present: warm. Absent: rash - *Routine Neurological Exam Present: alert, oriented X3 Assessment and Plan (1) Syncope Status: Acute Qualifiers: Syncope type: unspecified Qualified Code(s): R55 - Syncope and collapse Category: Medical Code(s): R55 - Syncope and collapse (2) GERD (gastroesophageal reflux disease) Status: Acute Category: Medical Code(s): K21.9 - Gastro-esophageal reflux disease without esophagitis (3) Lymphadenopathy Status: Acute Category: Medical Code(s): R59.1 - Generalized enlarged lymph nodes - Assessment and plan all Dx Assessment and Plan for all problems:: . Arrange for outpatient CT scanning of the chest to evaluate for lymphadenopathy. Holter monitor for 7 days. Follow-up next week.
[2021-09-06 11:05] LABS: MANUAL DIFFERENTIAL MANUAL DIFFERENTIAL (MANUAL DIFF)
[2021-09-06 11:13] LABS: Hematocrit 53.4 % (42.0-52.0); White Blood Count 6.8 K/mm3 (4.8-10.8)
[2021-09-06 11:14] LABS: Basophils # 0.2 K/mm3 (0-0.2); Basophils % 2.3 % (0.1-2.0); Eosinophils # 0.4 K/mm3 (0.0-0.4); Eosinophils % 5.1 % (0.1-12.0); Lymphocytes % 29.7 % (10-50); Mean Corpuscular HGB Conc 33.8 g/dL (31.8-35.4); Mean Corpuscular Hemoglobin 33.5 pg (27.0-31.2); Mean Corpuscular Volume 98.9 fl (80-94); Mean Platelet Volume 9.1 fl (7.4-10.4); Monocytes # 0.5 K/mm3 (0.1-1.0); Monocytes % 7.2 % (1.7-9.3); Neutrophils # 3.8 K/mm3 (1.8-7.8); Neutrophils % 55.8 % (37.0-80.0); Platelet Count 256 K/mm3 (142-424); Red Cell Distribution Width 13.8 % (11.5-17.5)
[2021-09-06 11:25] LABS: Hemoglobin 18.1 g/dL (14.1-18.0)
[2021-09-06 11:52] LABS: Eosinophils % 1 % (0-3); Lymphocytes % 30 % (10-50); Monocytes % 5 % (2-9); Neutrophils % 58 % (42-76); Platelet Estimate Normal; RBC Morphology Normal; Total Cells Counted 100
--- NOTE | 2021-09-06 16:15 | HMH.HPDC ---
General - General Admission date:: 09/06/21 Discharge date: 09/06/21 *Admission Date: 09/06/21 *Chief complaint: syncope *History of present illness: 46-year-old white male admitted through the emergency department last evening for syncopal episode x2. Patient states he fell asleep in his chair last evening and woke up about 1:20 AM at which time he got up and turned off the lights and went to the bathroom to brush his teeth all within about a 3-minute period. At that time he began to feel lightheaded as if he might pass out. He did lean over the sink at which time his came to check on him and was noted to have his eyes open but not responding appropriately. In an attempt to sit down patient became extremely weak and was directed to the floor where he was noted to be less responsive than shaking but no loss of bowel or bladder continence. Patient's daughter was brought to the bathroom to check on the patient at which time he was noted to be up and walking around. Blood pressure and blood glucose reportedly were normal. He was brought to the ER for evaluation. Work-up in the ER included lab work, head CT and EKG all essentially unremarkable. Due to a previous abnormal stress test and concern for coronary artery disease patient was admitted for follow-up evaluation. Patient did have a cardiac catheterization after his stress test in 2019 which was revealing of normal coronary arteries and normal left ventricular ejection fraction. Patient does have about 2 episodes of loose stools daily and has for a long time. He drinks about 6 beers per day along with at least 2 Mountain Dew's and tea. He drinks very little water. He denies any recent chest pain, pressure or tightness. No vomiting or recent illness. His only medication is omeprazole for GERD. Orthostatic vital signs today include supine blood pressure of 120/80 mmHg, sitting 120/80 mmHg and then standing it increases to 130/90 mmHg. Preliminary echocardiogram shows preserved ejection fraction. Troponins overnight have been are normal. Telemetry shows no arrhythmias. (above as per Hector Samano) [facility] History I have reviewed the patient's past medical history: Yes Medical History: Reports:: Asthma (childhood), Hypertension, Lung Disease, Kidney Stones Denies:: Cancer, Diabetes Mellitus Type 1, Diabetes Mellitus Type 2, Internal Pacemaker, MRSA, Seizures *Have you ever received a pneumonia vaccine?: No *Have you received a flu vaccine this season?: No Other Medical History: Reports: Other (history of adenopathy in the lungs with extensive evaluation ). Denies: Blood Transfusion Reaction Laterality Cases: Bilateral: Myringotomy (Ear Tubes) Other Surgeries: Yes: Appendectomy, Cardiac Catheterization, Cholecystectomy, Colonoscopy, Other (cystoscopy). No: Pacemaker Amputation: No Fractures: No - *Social History Last grade of school completed: Some college Smoking Status: Current every day smoker Tobacco Type: smokeless tobacco # Packs/Day (cigarettes): 0 Alcohol Intake: current Alcohol Intake Frequency:: 3 or more drinks per day Substance Use Type: denies use *Occupational Status:: employed Housing: house Household Members: spouse *Travel in the last 8 weeks: None Family Hx:: Diabetes, Heart Attack, Hypertension, Stroke Review of Systems - Constitutional Denies chills, Denies fever(s) - Eyes Denies blurry vision, Denies double vision - ENT Reports dizziness, Denies nasal congestion, Denies sore throat - *Cardiovascular Denies chest pain, Denies shortness of breath, Denies leg swelling - *Respiratory Reports cough, Denies shortness of breath - *Gastrointestinal Denies abdominal pain, Denies loose stools, Denies nausea, Denies vomiting - *Genitourinary Denies difficulty urinating, Denies painful urination - *Musculoskeletal Denies joint pain - *Neurologic Reports confusion, Reports dizziness, Reports other (syncope), Denies headache(s), Denies seizure-like activity
[2021-09-11 01:07] LABS: Aspergillus flavus Negative (Neg:<1:1); Aspergillus fumigatus Negative (Neg:<1:1); Aspergillus niger Negative (Neg:<1:1); Blastomyces Antibody Negative (Neg:<1:1)
== END 2021-09-06 13:45 | disposition home or self-care (01) ==
LOC: ER 01:57 → 2ND 05:01
PROVIDERS: Admitting Provider Family Medicine; Emergency Provider Emergency Medicine; PCP Nurse Practitioner; Visit Provider Family Medicine
DX: R55 Syncope and collapse (principal); F17.210 Nicotine dependence, cigarettes, uncomplicated; K21.9 Gastro-esophageal reflux disease without esophagitis; I10 Essential (primary) hypertension; Z79.899 Other long term (current) drug therapy; E03.9 Hypothyroidism, unspecified; R59.1 Generalized enlarged lymph nodes
CPT/HCPCS: 70450; 71046; 71270; 72125; 72170; 80053; 83735; 83880; 84145; 84436; 84443; 84484; 85007; 85014; 85018; 85025; 85048; 85049; 85651; 86140; 86606; 86612; 93005; 93270; 93306; 93880; 96365; 96375; 99284; C9803; G0378; Q9967; U0003; U0005